=== PATIENT | male | born 1960 | race Caucasian/White ===

== ENCOUNTER 2019-05-29 07:50 | Day surgery (SDC) | payer BC ==
[~2019-05-29 07:50] MED LIST: Lidocaine 1%/Sod Bicarbonate in NS 8.4% 1 ML Syringe IDERM PRN; Sodium Chloride 0.9% 10 ML Syringe FLUSH PRN
[2019-05-29] MEDS: Lactated Ringers 1,000 ML IV SCH ×2 (08:12→12:44)
--- NOTE | 2019-05-29 08:19 | PCM.PREANE ---
Preanesthetic Assessment - Procedure Proposed Procedure: Colonoscopy/laparoscopic Umbilical hernia repair - Anesthesia/Transfusion/Family Hx Anesthesia History: Prior Anesthesia Without Reaction Family History of Anesthesia Reaction: No Transfusion History: No Prior Transfusion(s) - Review of Systems General: No Symptoms Pulmonary: No Symptoms Cardiovascular: Dyspnea on Exertion Gastrointestinal: Abdominal Pain (around bellie button) Neurological: No Symptoms Other: Reports: Anxiety - Physical Assessment NPO Status Date: 05/28/19 NPO Status Time: 05:00 Height: 1.8 m Weight: 123.377 kg ASA Class: 3 Mental Status: Alert & Oriented x3 Airway Class: Mallampati = 3 Dentition: Reports: Broken Tooth/Teeth, Caries Thyro-Mental Finger Breadths: 2 Mouth Opening Finger Breadths: 2 ROM/Head Extension: Full Lungs: Clear to Auscultation, Normal Respiratory Effort, Decreased Breath Sounds Cardiovascular: Regular Rate, Regular Rhythm - Lab Values: Laboratory Last Values MRSA (PCR) Negative 05/28/19 11:21 - Allergies Allergies/Adverse Reactions: Allergies Allergy/AdvReac Type Severity Reaction Status Date / Time No Known Allergies Allergy Verified 05/29/19 07:11 - Blood Blood Available: No Product(s) Available: None - Anesthesia Plan Pre-Op Medication Ordered: None - Acknowledgements Anesthesia Type Planned: General Anesthesia Pt an Appropriate Candidate for the Planned Anesthesia: Yes Alternatives and Risks of Anesthesia Discussed w Pt/Guardian: Yes Pt/Guardian Understands and Agrees with Anesthesia Plan: Yes PreAnesthesia Questionnaire HEENT History: Other HEENT History: sinus conjestion Respiratory History: Reports: Asthma, Sleep Apnea Other Respiratory History: snoring Other Gastrointestinal History: bloating, change in bowel habits Musculoskeletal History: Reports: Arthritis Endocrine/Metabolic History: Reports: Vitamin D Deficiency Oncologic (Cancer) History: Reports: Other (See Below) Other Oncologic History: melanoma Other Dermatologic History: rash to right flank region - Past Surgical History GI Surgical History: Reports: Appendectomy Other Female Surgeries/Procedures: mastitis in male, nipple pain Male Surgical History: Reports: Other (See Below) - SUBSTANCE USE Smoking Status *Q: Never Smoker Tobacco Use Within Last Twelve Months: No Second Hand Smoke Exposure: No Days Per Week of Alcohol Use: 1 Number of Drinks Per Day: 2 Total Drinks Per Week: 2 Recreational Drug Use History: No - CURRENT (IN HOUSE) MEDS Current Meds: Current Medications Lactated Ringer's (Ringers, Lactated) 1,000 mls @ 125 mls/hr IV ASDIRECTED VITOR Stop: 05/29/19 23:00 Lidocaine/Sodium Bicarbonate (Buffered Lidocaine 1% In Ns 8.4%) 0.25 ml IDERM ONETIME PRN PRN Reason: Prior to IV Start Stop: 05/29/19 18:00 Sodium Chloride (Saline Flush) 10 ml FLUSH ASDIRECTED PRN PRN Reason: Keep Vein Open Stop: 05/29/19 18:00
[2019-05-29] MEDS ORDERED: Bupivacaine 0.5%/EPINEPHrine 1:200,000 50 ML MDV ONE (08:21)
[2019-05-29] MEDS ORDERED: Lactated Ringers 1,000 ML ONE (08:49)
[2019-05-29] MEDS ORDERED: ceFAZolin 1 GM Vial ONE ×2 (08:49→08:50)
[2019-05-29] MEDS ORDERED: Ondansetron 4 MG/2 ML SDV ONE (08:49)
[2019-05-29] MEDS ORDERED: Propofol 200 MG/20 ML SDV ONE ×2 (08:49→10:46)
[2019-05-29] MEDS ORDERED: Lidocaine 1% 4 ML ONE (08:49)
[2019-05-29] MEDS ORDERED: Rocuronium 50 MG/5 ML Vial ONE (08:49)
[2019-05-29] MEDS ORDERED: Dexamethasone 4 MG/ML 5 ML MDV ONE (08:50)
[2019-05-29] MEDS ORDERED: Succinylcholine/Sod PF 100 MG/5 ML SYRINGE IV ONE (08:50)
[2019-05-29] MEDS ORDERED: Midazolam 1 MG/ML 2 ML SDV ONE (08:50)
[2019-05-29] MEDS ORDERED: fentaNYL 250 MCG/5 ML SDV ONE (08:50)
[2019-05-29] MEDS ORDERED: Ketorolac 30 MG/ML SDV ONE (08:50)
[2019-05-29] MEDS ORDERED: HYDROmorphone 0.5 MG/0.5 ML Syringe ONE ×2 (09:42→11:05)
[2019-05-29] MEDS ORDERED: fentaNYL 100 MCG/2 ML SDV IVPUSH PRN (09:58)
[2019-05-29] MEDS ORDERED: Ondansetron 4 MG/2 ML SDV IVPUSH PRN (09:58)
[2019-05-29] MEDS ORDERED: HYDROmorphone 0.5 MG/0.5 ML Syringe IVPUSH PRN (09:58)
--- NOTE | 2019-05-29 11:29 | PCM.POSTAN ---
POST ANESTHESIA ASSESSMENT - MENTAL STATUS Mental Status: Alert, Oriented - VITAL SIGNS Vital Signs: Last Vital Signs Temp 36.4 C 05/29/19 08:12 Pulse 63 05/29/19 08:12 Resp 18 05/29/19 08:12 BP 142/89 H 05/29/19 08:40 Pulse Ox 97 05/29/19 08:12 1121 154/99 76 15 100% 97.9F - RESPIRATORY Respiratory Status: Respiratory Rate WNL, Airway Patent, O2 Saturation Stable, Supplemental Oxygen - CARDIOVASCULAR CV Status: Pulse Rate WNL, Blood Pressure Stable - GASTROINTESTINAL GI Status: No Symptoms - PAIN Pain Score: 0 - POST OP HYDRATION Hydration Status: Adequate & Stable
--- NOTE | 2019-05-29 11:36 | PCM.PRNOTE ---
- Free Text/Narrative Note: Date: 05/29/2019 Procedure: open umbilical hernia repair with mesh placement Surgeon: Anderson Fletcher MD Assisting: Jane HONEYCUTT Findings: reducible umbilical hernia containing omental fat. defect was 2 cm in diameter. Detailed Report: The patient was taken to the OR and placed supine on the table. Time out was performed and general endotracheal anesthesia initiated. The abdomen was clopped , prepped and draped in usual sterile fashion. 10 cc 0.5% marcaine with epinephrine was injected intradermally around the umbilicus. An inframbilical curvilinear incision was made with the knife, 4 cm in length. Monopolar energy was used to dissect through subcutaneous tissue to the fascia just inferior to the umbilical stalk/ fascial defect. The sac was dissected circumferentially until a right angle clamp was able to pass around the stalk superiorly. With hernia contents reduced, a clamp was placed across the sac. The sac was dissected sharply from its attachments to the overlying umbilical skin, taking care to preserve the skin. Two stay sutures of 0 PDS were placed on the lateral fascial edges of the hernia site. The fascia was retracted anteriorly and the clamp across the peritoneal sac removed. The peritoneal cavity was then explored digitally and there were no underlying abdominal wall adhesions. A bioabsorbable-coated permanent mesh, cut to a [place] with 2 cm radius, was then parachuted into the abdominal cavity and secured with transfascial 0 prolene stitches. The mesh laid flat and in good position. All sutures were tied down, and the fascial defect was closed with a single [id number] 0 PDS stitch. The umbilicus was then tacked down to the fascia with a PDS stitch, and skin was closed with running 4-0 vicryl in the subcuticular plane. Additional 10 cc local anesthetic was injected, and the wound was dressed with dermabond. The patient tolerated the procedure well. Anderson Fletcher MD General Surgery
--- NOTE | 2019-05-29 11:41 | PCM.PRNOTE ---
- Free Text/Narrative Note: Date: 05/29/2019 Procedure: initial screening colonoscopy Endoscopist: Anderson Fletcher MD Findings: Prep was very good. Ileocecal valve and appendiceal orifice visualized. A single diminutive polyp at about 50 cm from the anal verge was spotted, but could not be located after placement of the endoscopic snare wire, and the area was very carefully canvassed multiple times to no avail. A sessile polyp in the sigmoid colon was biopsied with the snare. Minor diverticular disease noted. No significant hemorrhoidal disease. Detailed Report: Following umbilical hernia repair, the patient was moved to a stretcher bed and placed in left lateral decubitus position. Time out was performed. The anus appeared normal. Digital rectal exam was unremarkable. The lubricated colonoscope was then inserted and advanced all the way to the cecum. The ileocecal valve was visualized. The prep was noted to be very good. On slow withdrawal of the scope, mucosal surfaces were carefully inspected. A subcentimeter pedunculated polyp was noted at about 50-60 cm from the anal verge ; during set up and placement of the endoscopic snare, visualization was lost. The area was very carefully and thoroughly inspected but no polyp was identified. An additional sessile polyp was noted in the sigmoid and this was biopsied using the hot snare. There were a few small diverticula of the sigmoid colon. No significant hemorrhoidal disease noted on retroflexion of the scope within the rectum. The patient tolerated the procedure well. Anderson Fletcher MD General Surgery
[2019-05-29] MEDS ORDERED: oxyCODONE 5 MG Tab PO PRN (11:58)
--- NOTE | 2019-05-29 13:55 | PCM48HPAN ---
Post Anesthesia Note - EVALUATION WITHIN 48HRS OF ANESTHETIC Vital Signs in Normal Range: Yes Patient Participated in Evaluation: Yes Respiratory Function Stable: Yes Airway Patent: Yes Cardiovascular Function Stable: Yes Hydration Status Stable: Yes Pain Control Satisfactory: Yes Nausea and Vomiting Control Satisfactory: Yes Mental Status Recovered: Yes Vital Signs: Last Vital Signs Temp 36.8 C 05/29/19 13:00 Pulse 64 05/29/19 13:00 Resp 12 05/29/19 13:00 BP 136/91 H 05/29/19 13:00 Pulse Ox 94 L 05/29/19 13:00
== END 2019-05-29 15:12 | disposition home or self-care (01) ==
LOC: JD.SDS 07:50
PROVIDERS: ATTEND Surgery
DX: Z12.11 Encounter for screening for malignant neoplasm of colon (principal); K63.5 Polyp of colon; K57.30 Diverticulosis of large intestine without perforation or abscess without bleeding; K42.9 Umbilical hernia without obstruction or gangrene; N64.4 Mastodynia; R21 Rash and other nonspecific skin eruption; J45.909 Unspecified asthma, uncomplicated; G47.30 Sleep apnea, unspecified; M19.90 Unspecified osteoarthritis, unspecified site
CPT/HCPCS: 00750; 87641; 93005; A9270-GY; C1781; J0690; J1100; J1170; J1885; J2001; J2250; J2405; J2704; J3010; J3490; J7120